=== PATIENT | male | born 1935 | race Caucasian/White ===

== ENCOUNTER → 2020-05-31 | Outpatient (CLI) | payer MEDICARE | LOC: HEART 5 09:20 | DX: I08.0 Rheumatic disorders of both mitral and aortic valves (principal) | CPT/HCPCS: 93306 ==

== ENCOUNTER → 2020-10-15 | Outpatient (CLI) | payer MEDICARE | LOC: EXRD 10:55 | DX: M79.662 Pain in left lower leg (principal) | CPT/HCPCS: 93971 ==

== ENCOUNTER → 2021-11-15 | Day surgery (SDC) | payer MEDICARE ==
[~2021-11-15] MED LIST: ACCUPRIL20 MG PO; ALLOPURINOL100 MG PO; ASPIRIN CHEWABL81 MG PO; CRESTOR10 MG PO; HYDROXYUREA500 MG PO; LOPRESSOR50 MG PO; NORVASC5 MG PO; VITAMIN B-121000 MC2 SL
== END | disposition home or self-care (01) ==
LOC: OR 06:28
DX: D12.3 Benign neoplasm of transverse colon (principal); K52.9 Noninfective gastroenteritis and colitis, unspecified; K51.20 Ulcerative (chronic) proctitis without complications; K57.30 Diverticulosis of large intestine without perforation or abscess without bleeding; K21.00 Gastro-esophageal reflux disease with esophagitis, without bleeding; K29.51 Unspecified chronic gastritis with bleeding; K44.9 Diaphragmatic hernia without obstruction or gangrene; D50.0 Iron deficiency anemia secondary to blood loss (chronic); I10 Essential (primary) hypertension; E78.5 Hyperlipidemia, unspecified; E66.3 Overweight; Z68.26 Body mass index [BMI] 26.0-26.9, adult; Z79.82 Long term (current) use of aspirin; Z79.899 Other long term (current) drug therapy
CPT/HCPCS: J2704; J7040